=== PATIENT | female | born 2000 | race Two or more races ===

== ENCOUNTER → 2020-02-24 | Outpatient (CLI) | payer OTHER | END | disposition home or self-care (01) | LOC: PRENATAL 15:00 | PROVIDERS: ATTEND Obstetrics & Gynecology | DX: O35.0XX1 Maternal care for (suspected) central nervous system malformation in fetus, fetus 1 (principal); O35.3XX1 Maternal care for (suspected) damage to fetus from viral disease in mother, fetus 1 ==

== ENCOUNTER 2020-06-12 16:33 | Inpatient (IN) | payer OTHER ==
[~2020-06-12] VITALS: Ht 154.9 cm; Wt 90.3 kg
[2020-06-12] MEDS ORDERED: PRENATABS RX T1 EACH PO (19:32)
== END 2020-06-14 10:50 | disposition home or self-care (01) | DRG 833 ==
LOC: LDR 16:33 → OB/GYN 16:33 → LDR 22:31 → OB/GYN 06-13 11:20
PROVIDERS: ADMIT Obstetrics & Gynecology; ATTEND Obstetrics & Gynecology
PROC: 4A0HXFZ Measurement of Products of Conception, Cardiac Rhythm, External Approach (ICD-10-PCS; principal; 2020-06-12)
DX: O60.03 Preterm labor without delivery, third trimester (principal); Z3A.36 36 weeks gestation of pregnancy; Z20.828 Contact with and (suspected) exposure to other viral communicable diseases

== ENCOUNTER 2020-06-23 15:15 | Inpatient (IN) | payer OTHER ==
[~2020-06-23] VITALS: Ht 154.9 cm; Wt 2.7 kg
[~2020-06-23 15:15] MED LIST: PRENATABS RX T1 EACH PO
[2020-06-24] MEDS ORDERED: FOLIC ACID0.4 MG PO (14:08)
== END 2020-06-27 12:20 | disposition home or self-care (01) | DRG 788 ==
LOC: LDR 06-24 13:15 → OB/GYN 06-24 13:15
PROVIDERS: ADMIT Obstetrics & Gynecology; ATTEND Obstetrics & Gynecology
PROC: 4A1HXFZ Monitoring of Products of Conception, Cardiac Rhythm, External Approach (ICD-10-PCS; 2020-06-24)
PROC: 3E033VJ Introduction of Other Hormone into Peripheral Vein, Percutaneous Approach (ICD-10-PCS; 2020-06-24)
PROC: 10D00Z1 Extraction of Products of Conception, Low, Open Approach (ICD-10-PCS; principal; 2020-06-24 18:00)
DX: O82 Encounter for cesarean delivery without indication (principal); Z3A.37 37 weeks gestation of pregnancy; Z37.0 Single live birth; Z20.828 Contact with and (suspected) exposure to other viral communicable diseases

== ENCOUNTER 2020-09-24 12:02 | Emergency (ER) | payer OTHER ==
[~2020-09-24] VITALS: Ht 154.9 cm; Wt 81.6 kg
[~2020-09-24 12:02] MED LIST changes: +FOLIC ACID0.4 MG PO
== END 2020-09-24 20:44 | disposition home or self-care (01) ==
LOC: ER 12:02
DX: R10.2 Pelvic and perineal pain (principal)